=== PATIENT | male | born 1940 | race Two or more races ===

== ENCOUNTER 2024-11-09 10:27 | Emergency (ER) | payer OTHER, SELFPAY ==
[2024-11-09 10:29] VITALS: BMI 30.4
[2024-11-09 11:00] VITALS: BP 102/64; PULSE 74; RESP 18; TEMP 36.5; O2SAT 95
--- NOTE | 2024-11-09 11:08 | XR_ITS ---
Examination: CT abdomen and pelvis without contrast. Coronal 3-D reconstructions. Sagittal 2-D reconstructions. Date and time of exam:November 09, 2024 1205 hours INDICATIONS: Patient fell today with injury to the abdomen and right flank pain CTDI: vol (mGy): 9.59 DLP: (mGycm): 645 Technique: Axial images of the abdomen have been obtained, 3 mm slice thickness Intravenous contrast material has not been administered. Low dose protocols were performed. One or more of the following dose reduction techniques were used; automated exposure control, adjustment of the mA and/or KV according to patient size, use of iterative reconstruction technique. Findings: Liver spleen and kidneys appear intact No perinephric hematoma Normal pancreas Abdominal aorta intact, no free blood in the abdomen Urinary bladder intact Prostatomegaly mediolateral dimension 4.9 cm Fat-containing inguinal hernias No lumbar vertebral body compression fracture Advanced disc narrowing L4-L5 Lumbar vertebral bodies sacral segments and bones of the pelvis hips appear intact IMPRESSION: No abdominal parenchymal laceration Abdominal aorta intact No free blood in the abdomen or pelvis
--- NOTE | 2024-11-09 11:08 | XR_ITS ---
Examination: CT cervical spine without contrast 2-D sagittal reconstructions 2-D coronal reconstructions 3-D reconstructions. Exam date and time:November 09, 2024 11:58 AM INDICATIONS: Patient fell today with into the neck, neck pain CTDI:vol (mGy) 17 DLP: (mGycm) . One Technique: Multiple 2 mm axial sections of the cervical spine have been obtained. The coronal and sagittal reconstructions have been obtained. 3-D reconstructions have been obtained. Low dose protocols were performed. One or more of the following dose reduction techniques were used; automated exposure control, adjustment of the mA and/or KV according to patient size, use of iterative reconstruction technique. Findings: Patient motion severely degrades image quality No gross cervical fracture Advanced disc narrowing C3-T1 Old appearing deformity left lamina T1 IMPRESSION: Patient motion severely degrades scan image quality No gross fracture Old appearing deformity left lamina T1 but clinical correlation advised Repeat this study as clinically warranted
--- NOTE | 2024-11-09 11:08 | XR_ITS ---
Examination: CT brain head without contrast. 2-D sagittal coronal reconstructions Date and time of exam:November 09, 2024 1158 hours INDICATIONS: Patient fell today with into the head, head pain CTDI: vol (mGy):54.4 DLP: (mGycm):1114 Technique: Multiple CT axial sections of the brain have been obtained, 5 mm slice thickness. Contrast has not been administered. 2-D sagittal, coronal reconstructions have been obtained Low dose protocols were performed. One or more of the following dose reduction techniques were used; automated exposure control, adjustment of the mA and/or KV according to patient size, use of iterative reconstruction technique. Findings: No significant ventricular enlargement. Intra-axial or extra-axial hemorrhage density is not seen. No mass effect or midline shift Basal cisterns are not remarkable. Fourth ventricle is midline. Cranial vault intact. Impression: Negative for acute hemorrhage, mass effect or midline shift
--- NOTE | 2024-11-09 11:08 | XR_ITS ---
Examination: CT maxillofacial, without intravenous contrast. 2-D sagittal reconstructions. 3-D reconstructions. Date and time of exam:November 09, 2024 1158 hours INDICATIONS: Patient fell today with injury to the face, swelling right face CTDI: vol (mGy):37.9 DLP: (mGycm):766 Technique: Multiple axial images of maxillofacial region, 3.0 mm slice thickness. 2-D sagittal and coronal reconstructions. 3-D reconstructions. Low dose protocols were performed. One or more of the following dose reduction techniques were used; automated exposure control, adjustment of the mA and/or KV according to patient size, use of iterative reconstruction technique. Findings: Frontal bones intact No orbital rim fractures No acute nasal bone fracture. No depression is diabetic arches Pterygoid plates maxilla and the mandible intact 16mm nodule versus hematoma lateral to the mandible on the right, recommend ultrasound follow-up IMPRESSION: No acute facial fracture Nodule versus hematoma in the soft tissue lateral to the mandible on the right, recommend ultrasound soft tissue follow-up.
--- NOTE | 2024-11-09 12:25 | PD.EDRME ---
Rapid Medical Screening Exam RME Arrival date/time: 11/09/24 10:27 84-year-old male presents to the emergency department today stating that he fell off of the bed today patient reports hitting the right side of his abdomen and the right side of his face Chief Complaint: Fall Time Seen by Provider: 11/09/24 11:09 Vital signs: Vital Signs Temperature 97.7 F 11/09/24 11:00 Pulse Rate 74 11/09/24 11:00 Respiratory Rate 18 11/09/24 11:00 Blood Pressure 102/64 11/09/24 11:00 Pulse Oximetry (%) 95 11/09/24 11:00 Oxygen Delivery Method Room Air 11/09/24 11:00
--- NOTE | 2024-12-01 18:11 | PD.EDADULT ---
ED General RME/HPI General Chief complaint: Fall Stated complaint: FALL THIS AM, C/O RT HIP AREA PAIN AND RT FACE Time Seen by Provider: 11/09/24 11:09 Arrival date/time: 11/09/24 10:27 84-year-old male presents to the emergency department today stating that he fell off of the bed today patient reports hitting the right side of his abdomen and the right side of his face patient reports no dizziness or headache prior to the fall reports no headache or dizziness after the fall patient reports no chest pain or shortness of breath Limitations: no limitations RME / HPI RME / HPI narrative: 11/09/24 10:27 84-year-old male presents to the emergency department today stating that he fell off of the bed today patient reports hitting the right side of his abdomen and the right side of his face Related Data Previous Rx's ?Medication ?Instructions ?Recorded acetaminophen 325 mg capsule 650 mg (2 x 325 mg) PO Q8HR PRN 11/09/24 pain #30 caps pregabalin 150 mg capsule 150 mg PO BID #20 caps 11/09/24 Allergies Allergy/AdvReac Type Severity Reaction Status Date / Time No Known Allergies Allergy Verified 11/09/24 10:32 Review of Systems Review of Systems Systems Reviewed: All systems reviewed, normal except as documented Constitutional Constitutional: Reports system reviewed and no additional complaints, except as documented, Denies fever(s) and Denies headache(s) Eyes Eyes: Reports system reviewed and no additional complaints, except as documented and Denies blurry vision ENT Ears, Nose, Mouth, and Throat: Reports system reviewed and no additional complaints, except as documented, Reports facial pain, Denies headache(s), Denies nasal congestion and Denies nasal discharge Cardiovascular Cardiovascular: Reports system reviewed and no additional complaints, except as documented, Denies chest pain and Denies dyspnea Respiratory Respiratory: Reports system reviewed and no additional complaints, except as documented, Denies chest congestion, Denies cough and Denies dyspnea Gastrointestinal Gastrointestinal: Reports system reviewed and no additional complaints, except as documented and Reports abdominal pain Integumentary/Breasts Skin/Breast: Reports system reviewed and no additional complaints, except as documented and Denies rash Neurologic Neurologic: Reports system reviewed and no additional complaints, except as documented, Reports as per HPI and Denies headache(s) Past Medical History Social History SMOKING STATUS: Never smoker ED Exam General Limitations: Present no limitations General appearance: Present alert and in no apparent distress Head Head exam: Present atraumatic, normocephalic and normal inspection Eye Eye exam: Present normal appearance, PERRL and EOMI; Absent conjunctival injection ENT ENT exam: Present normal exam, normal oropharynx, mucous membranes moist and other (Facial trauma) Neck Neck exam: Present normal inspection, full ROM and trachea midline Chest Chest inspection: Present normal inspection and symmetric chest wall rise Respiratory Respiratory exam: Present normal lung sounds bilaterally; Absent respiratory distress Cardiovascular Cardiovascular exam: Present regular rate, normal rhythm and normal heart sounds Abdominal Exam Abdominal exam: Present soft, tenderness (Mild tenderness right side of abdomen) and normal bowel sounds; Absent distention, guarding, rebound or rigidity Extremities Exam Extremities exam: Present normal inspection and full ROM Back Exam Back exam: Present normal inspection and full ROM Neurological Exam Neurological exam: Present alert, oriented X3 and CN II-XII intact Psychiatric Psychiatric exam: Present normal affect and normal mood Skin Skin exam: Present warm, dry, intact and normal color Course Quality Measures none Orders Category Date Time Status CT abdomen pelvis wo con Stat Exams 11/09/24 11:[address] cervical spine wo con Stat Exams 11/09/24 11:[address] facial bones wo con Stat Exams 11/09/24 11:[address] head/brain wo con Stat Exams 11/09/24 11:08 Completed Vital Signs Vital signs: Vital Signs Temperature 97.7 F 11/09/24 11:00 Pulse Rate 74 11/09/24 11:00 Respiratory Rate 18 11/09/24 11:00 Blood Pressure 102/64 11/09/24 11:00 Pulse Oximetry (%) 95 11/09/24 11:00 Oxygen Delivery Method Room Air 11/09/24 11:00 O2 saturation 95% room air within normal limit Discharge Plan Plan Patient Disposition: HOME (Self Care) Discharge Disposition comment: Stable Prescriptions/Referrals Prescriptions/Med Rec: New pregabalin 150 mg capsule 150 mg PO BID Qty: 20 0RF acetaminophen 325 mg capsule 650 mg PO Q8HR PRN (Reason: pain) Qty: 30 0RF Referrals: Annette Huffman PA-C [Primary Care Provider] - In 1 week Problem List Clinical Impression: Accidental fall from bed Patient/Caregiver Discharge Instructions Additional Instructions: Please follow up with your primary care doctor in the next 24-48hrs for any worsening symptoms return here immediately Print Language: Sami Stand Alone Forms: Jennifer Award Info., Patient Portal Info Letter PA/DIRECTOR OF RETAIL [employer]PERATIONS Supervising Physician LEN/RAYNA Supervising Physician: Dr. pantoja [facility] Narrative [facility] hospital course: 84-year-old male presents to the emergency department today stating that he fell off of the bed today patient reports hitting the right side of his abdomen and the right side of his face patient reports no dizziness or headache prior to the fall reports no headache or dizziness after the fall patient reports no chest pain or shortness of breath Imaging obtained no acute emergent findings noted Patient walks with steady gait no abnormal neurological findings Patient discharged home in no distress to follow-up with primary care doctor in the next 24 to 48 hours and for any worsening symptoms to return to the ER immediately Clinical Information Provided by patient Medical Records Reviewed [facility] Meds/Rx Considered, not Ordered None Labs/Rad/Tests considered, not Ordered None Chronic Illness/Social Conditions which may negatively complicate care or outcome(s)-explain: None or not applicable EKG EKG not done Lab Interpretation Labs: none Imaging Imaging interpretation: none and see narrative above Provider imaging interpretation(s): Reviewed by me Radiology reports / interpretation(s): Reviewed by me Medication Administration(s) none Diagnosis Differential diagnosis: Closed head injury, facial fracture, thoracic fracture Most likely dx, and/or detailed dx discussion: Closed head injury, fall Dispositon Disposition: Discharge Home
== END 2024-11-09 14:42 | disposition home or self-care (01) ==
PROVIDERS: Emergency Provider Emergency Medicine; PCP Physician Assistant
DX: S09.93XA Unspecified injury of face, initial encounter (principal); S39.91XA Unspecified injury of abdomen, initial encounter; M54.2 Cervicalgia; R51.9 Headache, unspecified; W06.XXXA Fall from bed, initial encounter
CPT/HCPCS: 70450; 70486; 72125; 74176; 99284